=== PATIENT | male | born 1990 | race Asian ===

== ENCOUNTER 2019-02-11 23:54 | Emergency (ER) | payer SELFPAY ==
[~2019-02-11] VITALS: Ht 188 cm; Wt 77.1 kg
--- NOTE | 2019-02-12 00:15 | NUR ---
ED Nurse Note: Recieved pt in police custody with officer and handcuffed, here for medical clearance for pt scabbed like lesions and rash to entire body, pt is awake and alert, denies cp, sob, or any pain, will resume care as ordered.
[2019-02-12] MEDS ORDERED: HYDROCORTISONE28 G2 TP (00:43)
[2019-02-12 00:55] VITALS: BP 130/83
--- NOTE | 2019-02-12 00:55 | NUR ---
ER DISCHARGE NOTE: Patient is cleared to be discharged per ERMD, pt is aox4, on room air, with stable vital signs. pt was given dc and prescription instructions, pt was able to verbalize understanding, pt id band removed without complications. pt is able to ambulate with steady gait. pt took all belongings.
--- NOTE | 2019-02-12 21:16 | Emergency Room Report ---
History of Present Illness General Chief Complaint: General Complaint Source: Patient Present Illness Allergies: Coded Allergies: No Known Allergies (Unverified , 02/12/19) Nursing Documentation-[facility] Past Medical History: No Stated History Physical Exam Vital Signs Date Time Temp Pulse Resp B/P (MAP) Pulse Ox O2 Delivery O2 Flow Rate FiO2 02/12/19 00:00 99.0 102 16 130/83 (99) 98 Room Air Medical Decision Making Diagnostic Impression: Primary Impression: Skin rash Last Vital Signs Date Time Temp Pulse Resp B/P (MAP) Pulse Ox O2 Delivery O2 Flow Rate FiO2 02/12/19 00:55 99.0 16 130/83 98 Room Air 02/12/19 00:15 102 Status: improved Disposition: D/C TO LAW [facility]ORCEMENT IN [facility] Condition: Stable Scripts Hydrocortisone Acetate 1% Onit (HYDROCORTISONE 1% OINT) Y Oint 28 GM TP DAILY, #30 GM Prov: Alcides Taylor MD 02/12/19 Referrals: NOT CHOSEN IPA/,REFERRING (PCP) Departure Forms: Half-Way Clearance Patient Instructions: Alcides Agiular MD Feb 12, 2019 21:16
== END 2019-02-12 00:55 ==
LOC: EMR 23:59
DX: R21 Rash and other nonspecific skin eruption (principal)
CPT/HCPCS: 99282